=== PATIENT | male | born 1945 | race Caucasian/White ===

== ENCOUNTER 2019-06-30 08:33 | Emergency (ER) | payer OTHER ==
[~2019-06-30] VITALS: Ht 182.9 cm; Wt 59.4 kg
[2019-06-30] MEDS ORDERED: AMBIEN10 MG PO (08:47)
[2019-06-30] MEDS ORDERED: RESTORIL15 M1 PO (08:47)
[2019-06-30] MEDS ORDERED: XANAX0.25 MG PO (09:18)
== END 2019-06-30 09:23 | disposition home or self-care (01) ==
LOC: ER 08:33
DX: F41.8 Other specified anxiety disorders (principal); G47.09 Other insomnia